=== PATIENT | male | born 1990 | race Caucasian/White ===

== ENCOUNTER 2020-09-30 15:16 | Emergency (ER) | payer OTHER ==
[~2020-09-30] VITALS: Ht 185.4 cm; Wt 79.4 kg
[2020-09-30 15:16] VITALS: BP_SYST 127
[~2020-09-30 15:16] MED LIST: ALBU17AE26 IH
[2020-09-30 18:30] VITALS: BP_SYST 127
== END 2020-09-30 18:31 | disposition home or self-care (01) ==
LOC: SED 15:16
DX: S00.83XA Contusion of other part of head, initial encounter (principal); G40.909 Epilepsy, unspecified, not intractable, without status epilepticus; J45.909 Unspecified asthma, uncomplicated; Z88.8 Allergy status to other drugs, medicaments and biological substances; Z79.899 Other long term (current) drug therapy; W22.01XA Walked into wall, initial encounter; Y93.89 Activity, other specified; Y92.89 Other specified places as the place of occurrence of the external cause; Y99.0 Civilian activity done for income or pay
CPT/HCPCS: 70486-TC; 76376; 99284